=== PATIENT | female | born 1985 | race African-American/Black ===

== ENCOUNTER 2024-05-07 04:54 | Emergency (ER) | payer OTHER ==
[~2024-05-07] VITALS: Ht 162.6 cm; Wt 81.8 kg
[2024-05-07 05:02] VITALS: TEMP 98.9
[2024-05-07 05:46] LABS: COLLECTION METHOD CLEAN CATCH
[2024-05-07 05:52] LABS: PH 5.5 (5.0-8.5); URINE APPEARANCE CLEAR (CLEAR/HAZY); URINE BLOOD NEGATIVE (NEGATIVE); URINE COLOR Dark Yellow (YELLOW); URINE GLUCOSE NEGATIVE (NEGATIVE); URINE KETONE TRACE (NEGATIVE); URINE NITRATE NEGATIVE (NEGATIVE); URINE PROTEIN(semi-quant) TRACE (NEGATIVE)
[2024-05-07] MEDS ORDERED: Acetaminophen 500 MG TAB PO ONE (06:15)
[2024-05-07 06:16] VITALS: BP 111/63; PULSE 81
== END 2024-05-07 06:16 | disposition home or self-care (01) ==
LOC: COL.ER 04:54
PROVIDERS: Emergency Medicine
DX: O26.892 Other specified pregnancy related conditions, second trimester (principal); R10.11 Right upper quadrant pain; Z3A.16 16 weeks gestation of pregnancy

== ENCOUNTER 2024-07-12 21:58 | Outpatient (CLI) | payer OTHER ==
[~2024-07-12] VITALS: Ht 167.6 cm; Wt 74.5 kg
--- NOTE | 2024-07-12 22:00 | NUR ---
To unit via wheelchair for labor assessment. Oriented to room, monitor, plan of care. Pt reports "cramping since Thursday night" Denies LOF, bloody show, urinary frequency or burning when she voids. SVE Finger tip, no bleeding or fluid noted on exam, white thick discharge noted on exam glove, strong odor noted.
[2024-07-12] MEDS ORDERED: LR 1,000 ML IV PRN (22:15)
[2024-07-12 22:30] VITALS: BP 129/64; PULSE 85; TEMP 98
[2024-07-12 22:55] VITALS: BP 128/61; PULSE 88
[2024-07-12 23:00] VITALS: BP 128/61; PULSE 88
[2024-07-12 23:30] VITALS: BP 121/59; PULSE 84
[2024-07-13] MEDS ORDERED: Acetaminophen 500 MG TAB PO ONE
[2024-07-13] MEDS ORDERED: diphenhydrAMINE 50 MG CAP PO ONE
--- NOTE | 2024-07-13 00:14 | NUR ---
FHT's 150'S with loss of tracing x 20 second than starts tracing at 110's with gradual (over 2 min)increase back to baseline to 150's 0026 FHT's with baseline 150's with 20 sec decel to 130's, then back to baseline
--- NOTE | 2024-07-13 01:00 | NUR ---
pt reports "feeling better" Irr and irregular ctx noted on monitor. 0122 Off monitor, up to bathroom. 0125 Dr Chaudhary calls in. Discharge order received.
--- NOTE | 2024-07-13 01:40 | NUR ---
Discharge instructions reviewed with pt and spouse. Questions invited and answered. 0143 Ambulatory off uunit.
[2024-07-13] MEDS ORDERED: LR 1,000 ML IV ONE (02:00)
== END 2024-07-13 01:43 | disposition home or self-care (01) ==
LOC: LDRO 21:58 → LDR 22:05 → LDRO 07-13 01:43
DX: O26.892 Other specified pregnancy related conditions, second trimester (principal); R10.9 Unspecified abdominal pain; Z3A.26 26 weeks gestation of pregnancy
CPT/HCPCS: OP; J7120